=== PATIENT | female | born 1950 | race Caucasian/White ===

== ENCOUNTER 2019-04-29 18:56 | Inpatient (IN) | payer MEDICARE ==
[2019-04-29 20:24] LABS: Hematocrit 18 % (35-47); Hemoglobin 4.9 g/dL (12.0-16.0); Mean Corpuscular HGB Conc 28 g/dL (31-36); Mean Corpuscular Hemoglobin 17 pg (27-31); Mean Corpuscular Volume 59 fL (80-97); Mean Platelet Volume 7.3 fL (7.4-10.4); Platelet Count 343 10^3/uL (150-450); Red Blood Count 2.96 10^6 /uL (3.70-4.87); Red Cell Distribution Width 21 % (10-15); White Blood Count 5.7 10^3/uL (3.5-10.8)
[2019-04-29 20:25] LABS: Activated Partial Thrombo Time 32.8 seconds (26.0-38.0); INR 1.03 (0.82-1.09)
[2019-04-29 20:30] LABS: ALT 7 U/L (7-52); AST 10 U/L (13-39); Albumin 3.9 g/dL (3.2-5.2); Albumin/Globulin Ratio 1.2 (1-3); Alkaline Phosphatase 71 U/L (34-104); Anion Gap 7 mmol/L (2-11); Blood Urea Nitrogen 12 mg/dL (6-24); C Reactive Protein 1.13 mg/L (<8.01); CO2 Carbon Dioxide 25 mmol/L (22-32); Chloride 103 mmol/L (101-111); EGFR African American 120.3 (>60); EGFR Non-African American 99.4 (>60); Globulin 3.2 g/dL (2-4); Glucose 116 mg/dL (70-100); Potassium 4.2 mmol/L (3.5-5.0); Sodium 135 mmol/L (135-145); Total Protein 7.1 g/dL (6.4-8.9)
[2019-04-29 21:00] LABS: ABS Basophils 0.2 10^3/ul (0-0.2); ABS Eosinophils 0.1 10^3/ul (0-0.6); ABS Lymphocytes 1.9 10^3/ul (1.0-4.8); ABS Monocytes 0.5 10^3/ul (0-0.8); ABS Neutrophils 3.1 10^3/ul (1.5-7.7); Eosinophil % 2.3 %; Lymphocyte % 32.7 %; Nucleated Red Blood Cells % 0.2
[2019-04-29 21:17] LABS: Urine Appearance Clear; Urine Bilirubin Negative (Negative); Urine Blood Negative (Negative); Urine Color Yellow; Urine Glucose Negative (Negative); Urine Ketones Negative (Negative); Urine Nitrite Negative (Negative); Urine Protein Negative (Negative); Urine Specific Gravity 1.017 (1.010-1.030); Urine Urobilinogen Negative (Negative)
[2019-04-29] MEDS ORDERED: Acetaminophen TAB* 325 MG PO PRN (22:22)
[2019-04-29] MEDS ORDERED: Chlorpheniramine Maleate TAB* 4 MG PO PRN (22:23)
[2019-04-29] MEDS ORDERED: Ondansetron INJ* 2 MG/ML VIAL IV PRN (22:25)
[2019-04-29 23:09] LABS: LDH 152 U/L (140-271); Total Iron Binding Capacity 532 mcg/dL (250-450); Transferrin 380 mg/dL (203-362)
[2019-04-29 23:30] LABS: % Iron Saturation 3 % (15-55); Iron < 17 ug/dL (50-212)
[2019-04-29 23:31] LABS: Ferritin 2.1 ng/mL (11-307)
[2019-04-29 23:34] LABS: Folate > 20.00 ng/mL (>3.99)
--- NOTE | 2019-04-30 00:26 | HP ---
CC: Dr. Mancia.* HOSPITAL MEDICINE HISTORY AND PHYSICAL: DATE OF ADMISSION: 04/29/19 PRIMARY CARE PHYSICIAN: Dr. Mancia. ATTENDING PHYSICIAN: Dr. Kaur Rodriguez * (dictation provided by Mariah Pierce NP ) CHIEF COMPLAINT: Fatigue with finding of anemia by primary care. HISTORY OF PRESENT ILLNESS: Ms. Jimenez is a 68-year-old female who presents to the hospital today with concern for fatigue after finding of anemia from her primary care physician. Ms. Jimenez states that she has been feeling fatigued for quite sometime, however, it is difficult for her to pinpoint when this may have started. 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 She suspected that her tiredness was due to this. Her dover on mother's day. The patient noted that even though she was not required to be up in the middle of the night that she continued to feel quite fatigued. She called her primary care physician for an appointment and had blood work drawn prior to the appointment. The office called her today stating that she was very anemic and that she should come to the emergency room immediately. The patient's hemoglobin was found to be 5.1. Ms. Jimenez states that she had no blood in the stool, no black tarry stool, no change in the stool whatsoever. She has had no nausea, no vomiting, no diarrhea , no abdominal pain. She has not noticed her skin changing colors or becoming yellow or jaundiced and she states that she has felt in her normal state of health other than her fatigue. Ms. Jimenez states that she has had a colonoscopy with Dr. Deleon in 2004 that showed negative colonoscopy for polyps to the hepatic flexure. There is a report for an upper GI endoscopy performed for reflux symptoms in [address] Deleon. The patient had erosive esophagitis [place] grade B hiatal hernia. The patient states she denies taking ibuprofen or aspirin regularly. She states she generally takes the omeprazole twice daily as prescribed by Dr. Deleon though sometimes she misses this. In the emergency room, Ms. Jimenez' anemia was confirmed with a hemoglobin of 4.9 , her white blood cell count is normal, her platelet count is normal and note that she has an MCV of 59. Her INR was normal. Her electrolytes are normal, her creatinine is normal. Her EKG shows sinus tachycardia with a heart rate of about 110. PAST MEDICAL HISTORY: 1. Lymphedema. 2. Hypertension. MEDICATIONS: 1. Enalapril 20 mg p.o. b.i.d. 2. Omeprazole 20 mg p.o. b.i.d. 3. Atorvastatin, unknown dose. 4. The patient also takes Chlor-Trimeton for allergies. ALLERGIES: Are just seasonal. FAMILY HISTORY: Reviewed, noncontributory. SOCIAL HISTORY: No reported alcohol, tobacco or drug use. The patient lives alone. REVIEW OF SYSTEMS: A 14-point review of systems was completed with Ms. Jimenez and all those not mentioned above were negative. PHYSICAL EXAMINATION GENERAL: Ms. Jimenez is lying in the bed. She is in no acute distress. VITAL SIGNS: Temperature 98.9, pulse rate was 120, now down to about 90, O2 saturation 96% on room air, respiratory rate 28, blood pressure 168/88. HEENT: Extraocular movements are intact. LUNGS: Are clear to auscultation bilaterally. No accessory muscle use and good aeration. HEART: S1, S2. No murmur, rub, or gallop, and regular. ABDOMEN: Soft, nontender with bowel sounds positive x4. EXTREMITIES: There is no cyanosis, but positive for 3+ lymphedema. NEURO: She is alert, she is oriented x3. She moves all extremities equally. There is no facial asymmetry or focal weakness. SKIN: Intact. DIAGNOSTIC STUDIES/LAB DATA: WBC 5.7, hemoglobin 4.9, hematocrit 18, platelet count 343. INR 1.03. Sodium 135, potassium 4.2, chloride 103, serum bicarbonate 25, BUN 12, creatinine 0.6, glucose 116. CRP 1.13. Urine shows no evidence of infection. EKG shows sinus tachycardia. ASSESSMENT AND PLAN: Ms. Jimenez is a 68-year-old female with past medical history of hypertension, lymphedema, and presents to the hospital with concern for fatigue, found to have a new severe anemia. Our plans are for inpatient admission and I expect her stay will be greater than 2 days for the followin. Anemia: I suspect that Ms. Jimenez likely has an upper GI bleed, however, she does have a negative guaiac stool today. I plan to repeat the stool occult blood in the morning. Based on the fact that she has a profound iron deficiency and no other source of bleed, I still remain suspicious despite the negative guaiac that this is upper GI bleed. She has a history of some erosive esophagitis, has been on omeprazole. She denies ibuprofen or aspirin use. Other etiologies will be ruled out. Plan to check iron studies, vitamin B12, folate, LDH, and haptoglobin. I have not called GI this evening, but I am recommending that they be called in the a.m. to alert them to a need for likely upper endoscopy. Plan to check H and H in the a.m. Plan to switch to pantoprazole. The patient will be clear liquids tonight. I am making her n.p.o. after midnight, but this can be adjusted tomorrow based on the timing of any upper endoscopy plan. Two units of PRBCs have been ordered here in the ED, repeat H/H in AM. 2. Hypertension. Plan to continue enalapril. 3. Code status is full code. 4. Disposition: To medical floor. TIME SPENT: Approximately 60 minutes was spent on the admission of this patient , more than half time was spent with patient's bedside reviewing the events leading up to this hospitalization, performing the physical examination, and reviewing my plan of care. MARIAH PIERCE NP [id number]/[facility] #: [id number] MTDD
[2019-04-30 06:20] LABS: Hematocrit 19 % (35-47); Hemoglobin 5.9 g/dL (12.0-16.0)
--- NOTE | 2019-04-30 08:14 | PN ---
Subjective Date of Service: 04/30/19 Interval History: Feels well no CP, LH, abdominal pain, N/V. No Bm since yesterday Objective Active Medications: Acetaminophen (Tylenol Tab*) 650 mg PO Q6H PRN PRN Reason: PAIN Chlorpheniramine Maleate (Chlortrimeton Tab*) 4 mg PO Q4H PRN PRN Reason: allergies Enalapril Maleate (Vasotec Tab*) 20 mg PO BID JAY Ondansetron HCl (Zofran Inj*) 4 mg IV Q6H PRN PRN Reason: NAUSEA Pantoprazole Sodium (Protonix Tab*) 40 mg PO BID [facility] Vital Signs - 8 hr 04/30/19 04/30/19 01:12 05:15 Temperature 98.2 F Pulse Rate 66 Respiratory 18 18 Rate Blood Pressure 145/43 (mmHg) O2 Sat by Pulse 100 Oximetry Oxygen Devices in Use Now: None Appearance: NAD Eyes: No Scleral Icterus, PERRLA Ears/Nose/Mouth/Throat: NL Teeth, Lips, Gums, Clear Oropharnyx Neck: Trachea Midline Respiratory: Symmetrical Chest Expansion and Respiratory Effort, Clear to Auscultation Cardiovascular: NL Sounds; No Murmurs; No JVD, RRR Abdominal: NL Sounds; No Tenderness; No Distention, No Hepatosplenomegaly Lymphatic: No Cervical Adenopathy Extremities: - - b/l LE lymphedema Skin: No Rash or Ulcers Neurological: Alert and Oriented x 3 Result Diagrams: 04/30/19 05:16 04/29/19 19:55 Microbiology and Other Data: Microbiology 04/29/19 20:03 Stool Occult Blood (RAJNI) - Final Stool Assess/Plan/Problems-Billing Assessment: 68 yo F h/o lymphedema HTN, erosive esophagitis in 2006 on a PPI p/w fatigue found with anemia - Patient Problems (1) Iron deficiency anemia Comment: consult for GI placed, endo suit called No active bleed identified, protonix shortage and restrictions noted by pharmacy , maintain PO PPI and transition to IV if e/o bleed or change in clinical status Venofer while in hospital 1 additional unit of blood (3rd total) with recheck h/h after NPO (2) Lymphedema Comment: pt to have her own compression stocking brought in to use (3) Essential hypertension Comment: enalapril on hold while NPO (4) DVT prophylaxis Comment: SCDs
[2019-04-30] MEDS: Enalapril TAB* 20 MG PO SCH ×2 (09:07→21:29)
[2019-04-30] MEDS: Pantoprazole TAB * 40 MG TAB PO SCH ×2 (09:07→21:29)
[2019-04-30 12:55] LABS: Hematocrit 22 % (35-47)
--- NOTE | 2019-04-30 21:18 | CONS ---
GASTROENTEROLOGY CONSULT: DATE OF CONSULTATION: 04/30/19 CONSULTING PHYSICIAN: Rosa Elena Mancia MD, Molina Mata MD REASON FOR CONSULTATION: Microcytic anemia. 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 She was found to be anemic by her primary physician and sent to the emergency room. She has been transfused and now is feeling somewhat better with a hemoglobin of 7.0. The origin of this is somewhat mysterious to her as she has not been having any gastrointestinal upset. She was known to have a hiatal hernia and takes omeprazole 40 mg twice a day for probably 10 or 11 years. It completely controls her acid peptic symptoms. She does take ibuprofen 400 mg several times a month. She emphasizes how infrequently she takes it and notes she does have a fair amount of musculoskeletal distress. Her last upper endoscopy in 2006 showed a large hiatal hernia. She had a colonoscopy in 1999 that was negative and then a second colonoscopy attempt in July 2015 that reached the hepatic flexure. There were no polyps to that level. It is notable that her hemoglobin, which had been in the 13s in 2010, 2011, and 2012 had dipped to 11.5 by May 2015 and the next value was the one from yesterday with a hemoglobin of 5.1. PAST MEDICAL HISTORY: 1. Morbid obesity. 2. Lymphedema. 3. Status post two C-sections. 4. Appendectomy - 1973 at this hospital. SOCIAL HISTORY: She has 3 children, 5 grandsons and a granddaughter and she is the only medical person in the extended [place]. 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 REVIEW OF SYSTEMS: No history of seizures, syncope, TIA, CVA, arrhythmias, TB, hemoptysis, hepatitis, renal stones, gross hematuria. PHYSICAL EXAMINATION: She is an older woman appearing little bit chronically ill, sallow complected, and morbidly obese. She has quite significant pedal edema and lymphedema. HEENT: Exam is unremarkable. She has no adenopathy. Her lungs are clear. Heart sounds are regular. Breast and pelvic exam is deferred. The abdomen is obese with a midline infraumbilical scar. Rectal deferred. Hemoccult from yesterday was negative. IMPRESSION: This 68-year-old woman known to have a large hiatal hernia and on double dose twice a day PPI therapy for over 10 years, most likely has an iron deficiency anemia on the basis of increased losses from the hiatal hernia and malabsorption of iron from the PPI. Her right colon has not been viewed in some time, but the priority of doing that now appears somewhat low. Her body habitus makes that a more burdensome procedure and slightly more risky and should there be any post bleeding, a hemoglobin of 7 is not positioning her well to withstand that. Upper endoscopy, cautious introduction of an oral iron supplement low-dose for an extended period and replenishing her iron with some intravenous doses would be my recommendation. [id number]/[facility] #: [id number] MTDD
[2019-04-30 22:15] LABS: Hematocrit 23 % (35-47); Hemoglobin 7.3 g/dL (12.0-16.0)
[2019-05-01 07:08] LABS: Hematocrit 22 % (35-47); Mean Corpuscular HGB Conc 32 g/dL (31-36); Mean Corpuscular Hemoglobin 21 pg (27-31); Mean Corpuscular Volume 65 fL (80-97); Mean Platelet Volume 8.7 fL (7.4-10.4); Platelet Count 284 10^3/uL (150-450); Red Blood Count 3.34 10^6 /uL (3.70-4.87); Red Cell Distribution Width 28 % (10-15); White Blood Count 4.8 10^3/uL (3.5-10.8)
[2019-05-01 07:56] LABS: ABS Basophils 0.1 10^3/ul (0-0.2); ABS Eosinophils 0.2 10^3/ul (0-0.6); ABS Lymphocytes 1.4 10^3/ul (1.0-4.8); ABS Monocytes 0.6 10^3/ul (0-0.8); ABS Neutrophils 2.5 10^3/ul (1.5-7.7); Eosinophil % 3.7 %; Lymphocyte % 29.4 %; Microcytosis 2+; Nucleated Red Blood Cells % 0.1
[2019-05-01] MEDS ORDERED: Iron Sucrose* 200 MG in NS 0.9% 100 ML* 100 ML IVPB ONE (08:00)
[2019-05-01] MEDS: Enalapril TAB* 20 MG PO SCH ×2 (08:33→19:51)
[2019-05-01] MEDS: Pantoprazole TAB * 40 MG TAB PO SCH ×2 (08:33→19:51)
--- NOTE | 2019-05-01 15:03 | PN ---
Subjective Date of Service: 05/01/19 Interval History: no BMs o/n Feels less fatigued since receipt of blood no other complaints Objective Active Medications: Acetaminophen (Tylenol Tab*) 650 mg PO Q6H PRN PRN Reason: PAIN Chlorpheniramine Maleate (Chlortrimeton Tab*) 4 mg PO Q4H PRN PRN Reason: allergies Enalapril Maleate (Vasotec Tab*) 20 mg PO BID [facility] Last Admin: 05/01/19 08:33 Dose: 20 mg Iron Sucrose 200 mg/ Sodium (Chloride) 110 mls @ 110 mls/hr IVPB ONCE ONE Stop: 05/02/19 09:59 Ondansetron HCl (Zofran Inj*) 4 mg IV Q6H PRN PRN Reason: NAUSEA Pantoprazole Sodium (Protonix Tab*) 40 mg PO BID [facility] Last Admin: 05/01/19 08:33 Dose: 40 mg Vital Signs - 8 hr 05/01/19 05/01/19 05/01/19 07:45 08:00 11:35 Temperature 98.5 F 98.1 F Pulse Rate 60 68 Respiratory 20 17 20 Rate Blood Pressure 121/53 141/61 (mmHg) O2 Sat by Pulse 98 99 Oximetry Oxygen Devices in Use Now: None Appearance: NAD Eyes: No Scleral Icterus, PERRLA Ears/Nose/Mouth/Throat: NL Teeth, Lips, Gums, Clear Oropharnyx Neck: NL Appearance and Movements; NL JVP, Trachea Midline Respiratory: Symmetrical Chest Expansion and Respiratory Effort, Clear to Auscultation Cardiovascular: RRR, - - 2/6 KATI Abdominal: NL Sounds; No Tenderness; No Distention, No Hepatosplenomegaly Lymphatic: No Cervical Adenopathy Extremities: No Edema Skin: No Rash or Ulcers Neurological: Alert and Oriented x 3 Result Diagrams: 05/01/19 05:19 04/29/19 19:55 Microbiology and Other Data: Microbiology 04/29/19 20:03 Stool Occult Blood (RAJNI) - Final Stool Assess/Plan/Problems-Billing Assessment: 68 yo F h/o lymphedema, HTN, erosive esophagitis, in 2006 on a PPI large hiatial hernia p/w fatigue found with microcytic anemia - Patient Problems (1) Iron deficiency anemia Comment: appreciate GI c/s EGD today PPI PO Venofer while in hospital (IV iron) 1 additional unit of blood (3rd total)04/30 with recheck h/h after has remained stable NPO (2) Lymphedema Comment: pt to have her own compression stocking brought in to use (3) Essential hypertension Comment: enalapril on hold while NPO (4) DVT prophylaxis Comment: SCDs
[2019-05-01] MEDS ORDERED: fentaNYL* 50 MCG/ML 2 ML VIAL (100 MCG VIAL) ONE (15:09)
[2019-05-01] MEDS ORDERED: Midazolam* 1 MG/ML 10 ML VIAL (10 MG) ONE (15:10)
[2019-05-01] MEDS ORDERED: PEG 3000 GI LAVAGE* 1 GALLON PO ONE (16:50)
--- NOTE | 2019-05-01 19:32 | PRO ---
CC: Rosa Elena Mancia MD; Molina Mata MD * DATE OF PROCEDURE: 05/01/19 - ROOM #402 PROCEDURE: EGD with biopsy. PRIMARY CARE PROVIDER: Rosa Elena Mancia MD. INPATIENT ATTENDING: Molina Mata MD INDICATION: The patient was admitted for severe anemia noticed in the setting of weakness and fatigue. Lab on admission demonstrated a hemoglobin of 4.9. The patient has received blood transfusions. Hemoglobin over the last day has remained stable in the 7 to 7.3 range. The patient denies any overt GI bleeding or GI symptoms. Reports being told that she had a hiatal hernia a long time ago. Denies any significant NSAID use. The patient last had a colonoscopy attempted in 2014. The scope was only able to advance to the hepatic flexure due to the challenging anatomy. There were no polyps on that exam. MEDICATIONS GIVEN: Midazolam 10 mg IV, Fentanyl 100 mcg IV. DESCRIPTION OF PROCEDURE: Full disclosure of risks was reviewed with the patient as detailed on the consent form. The patient was placed in the left lateral decubitus position and monitored with continuous pulse oximetry, capnography, interval blood pressure monitoring and direct observation. A bite- block was placed between the patient's teeth. An adult gastroscope was then inserted into the patient's mouth and advanced down the esophagus, into the stomach, and into the distal duodenum. Findings and interventions are described below. FINDINGS: Esophagus was a tubular structure without rings or strictures. There was an irregular Z-line with the most proximal portion being measured at 32 cm. GE junction occurred at 34 cm. Scope was advanced into a large hiatal hernia (top of the gastric fold measuring at 42 cm). Hiatal hernia was closely inspected. There was no fresh or old blood. There were no erosions or bleeding sites seen within the hernia sac. The scope was then advanced into the stomach. Stomach was examined in the forward and retroflexed views. There was a small amount of yellowish liquid suctioned from the stomach on initial evaluation. No fresh or old blood. There was a finely nodular appearance to the gastric body mucosa. Biopsies obtained. In the antrum, there was thickened pre -pyloric mucosa. No ulcer or erosion seen on close inspection. Biopsy obtained. No AVMs. Scope was then advanced into the duodenum to at least the third portion. Careful inspection was made of the duodenal mucosa. There was ohara bilious fluid seen. No fresh or old blood. No erosions or ulcers. No AVMs. Biopsies obtained to rule out celiac disease. The scope was then withdrawn back into the esophagus where biopsies were obtained from the irregular Z-line. Scope was then withdrawn from the patient. The patient tolerated the procedure well and was recovered in the GI recovery area. IMPRESSION: 1. Complete upper endoscopy to the distal duodenum. 2. No fresh or old blood seen. No source of bleeding identified. 3. Large hiatal hernia. 4. Irregular Z-line. 5. Fine nodularity of the gastric body mucosa and pre-pyloric antral thickening. FOLLOWUP: 1. Await pathology. 2. Continue to monitor CBC every 12 hours. 3. Recommend a colonoscopy as the patient has profound iron deficiency anemia with unclear source. Clear diet today. Give GOLYTELY (4L) this evening with anticipation of a colonoscopy tomorrow. 4. Continue PPI b.i.d. (po). Consider decreasing to once daily PPI as there is possible decreased iron absorption in the setting of high dose PPI use. [id number]/[facility] #: [id number] [facility]
[2019-05-02 06:17] LABS: Hematocrit 22 % (35-47); Hemoglobin 6.9 g/dL (12.0-16.0); Mean Corpuscular HGB Conc 31 g/dL (31-36); Mean Corpuscular Hemoglobin 20 pg (27-31); Mean Corpuscular Volume 65 fL (80-97); Mean Platelet Volume 8.3 fL (7.4-10.4); Platelet Count 282 10^3/uL (150-450); Red Blood Count 3.41 10^6 /uL (3.70-4.87); Red Cell Distribution Width 29 % (10-15); White Blood Count 4.6 10^3/uL (3.5-10.8)
[2019-05-02 08:14] LABS: ABS Basophils 0.1 10^3/ul (0-0.2); ABS Eosinophils 0.2 10^3/ul (0-0.6); ABS Lymphocytes 1.2 10^3/ul (1.0-4.8); ABS Monocytes 0.5 10^3/ul (0-0.8); ABS Neutrophils 2.6 10^3/ul (1.5-7.7); Eosinophil % 3.5 %; Lymphocyte % 26.2 %; Microcytosis 2+; Nucleated Red Blood Cells % 0.2; Polychromasia 1+
[2019-05-02] MEDS: Enalapril TAB* 20 MG PO SCH (08:59)
[2019-05-02] MEDS: Pantoprazole TAB * 40 MG TAB PO SCH (08:59)
[2019-05-02] MEDS ORDERED: Iron Sucrose* 200 MG in NS 0.9% 100 ML* 100 ML IVPB ONE (09:00)
[2019-05-02] MEDS ORDERED: Midazolam* 1 MG/ML 10 ML VIAL (10 MG) ONE (15:24)
[2019-05-02] MEDS ORDERED: fentaNYL* 50 MCG/ML 2 ML VIAL (100 MCG VIAL) ONE (15:24)
[2019-05-02 19:03] VITALS: BP 125/76
--- NOTE | 2019-05-02 21:41 | DS ---
CC: Dr. Mancia * DISCHARGE SUMMARY: DATE OF ADMISSION: 04/29/19 DATE OF DISCHARGE: 05/02/19 PRIMARY CARE PROVIDER: Dr. Mancia. DISPOSITION ON DISCHARGE: Home. CONDITION ON DISCHARGE: Good. PRIMARY DIAGNOSIS: Iron deficiency anemia. SECONDARY DIAGNOSES: Include: 1. Lymphedema. 2. Essential hypertension. MEDICATIONS AT DISCHARGE: Include: 1. Chlorpheniramine 8 mg in the morning as needed. 2. Enalapril 20 mg twice daily. 3. Atorvastatin 10 mg in the morning. 4. Omeprazole 20 mg daily. Please note the decreased dose to once daily. 5. Ferrous sulfate 325 mg twice daily. 6. Docusate 200 mg daily as needed for constipation. PERTINENT LABORATORY DATA: Hemoglobin on presentation 4.9, hemoglobin on the day of discharge was 6.9. The patient received additional unit of blood prior to her discharge after this value. 6.9 does not represent ultimate discharge hemoglobin. Iron is less than 17, TIBC 532, percent saturation 3, transferrin 380, ferritin 2.1, folate was greater than 20, and vitamin B12 was 219, borderline low. HISTORY OF PRESENT ILLNESS AND HOSPITAL COURSE: This is a 68-year-old female with past medical history as outlined in the history of present illness, who on the day of admission presented to the hospital with increasing fatigue after she saw her doctor, had a hemoglobin checked, came back as critical low, presented to the emergency room for further evaluation, found with a hemoglobin of 4.9 as indicated above. She received a total of 3 units of packed red blood cells during the course of the hospital stay. She did not have any evidence of blood loss including a negative stool occult. She underwent an upper endoscopy with Dr. Branham on 05/01/19 without any notable evidence of bleeding. The patient does have a known hiatal hernia. No Garfield lesions identified at that time, although fine nodularity of the gastric body mucosa and prepyloric antral thickening was noted. A complete colonoscopy was performed by Dr. Brooks on the day of discharge, again without notable source of bleeding, only 1 polyp per verbal report. Dictated report is still pending at the time of this discharge. There is concern for decreased iron absorption in the setting of twice daily proton pump inhibitor. However, significant severity of iron deficiency anemia does warrant a capsule endoscopy. The patient will be discharged with a lower dose proton pump inhibitor as well as iron supplementation and docusate for constipation. She is advised to follow up with a burring machine operator for capsule endoscopy as well as a electrical technician for further evaluation of her iron deficiency anemia. She does not want to follow up at [place] and would rather follow up at [place] where she is currently working. Appointments were not made for the patient at this point. The patient did receive 2 doses of Venofer during the course of the hospital stay to supplement her iron. At followup please; 1. CBC as necessary to trend hemoglobin and hematocrit stability. 2. Ensure continued iron supplementation and repletion. 3. Follow up biopsies from endoscopy. 4. Ensure the patient follows up with Gastroenterology for capsule endoscopy. The patient signed a medical record release while hospitalized so that she may obtain her records more easily when she follows up outside of our service area. 5. Ensure the patient follows up with Hematology. Reasons to return to the hospital including, but not limited to, recurrent or worsening symptoms including worsening fatigue, shortness of breath, or chest pain, dark black stools or blood, lightheadedness, loss of consciousness, near loss of consciousness, inability to obtain or tolerate medications discussed with the patient. She acknowledge understanding. TIME SPENT: Greater than 60 minutes was spent in the discharge of the patient, greater than half was spent [id number] with the patient. [id number]/[facility] #: [id number] WA[facility]AS
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
== END 2019-05-02 20:15 | disposition home or self-care (01) | DRG 812 ==
LOC: ED 18:56 → MED 22:18
PROVIDERS: ADMIT Internal Medicine; ATTEND Internal Medicine
PROC: 30233N1 Transfusion of Nonautologous Red Blood Cells into Peripheral Vein, Percutaneous Approach (ICD-10-PCS; principal; 2019-04-29)
PROC: 0DD98ZX Extraction of Duodenum, Via Natural or Artificial Opening Endoscopic, Diagnostic (ICD-10-PCS; 2019-05-01)
PROC: 0DD78ZX Extraction of Stomach, Pylorus, Via Natural or Artificial Opening Endoscopic, Diagnostic (ICD-10-PCS; 2019-05-01)
PROC: 0DD68ZX Extraction of Stomach, Via Natural or Artificial Opening Endoscopic, Diagnostic (ICD-10-PCS; 2019-05-01)
PROC: 0DD18ZX Extraction of Upper Esophagus, Via Natural or Artificial Opening Endoscopic, Diagnostic (ICD-10-PCS; 2019-05-01)
DX: D50.9 Iron deficiency anemia, unspecified (principal); Z68.41 Body mass index [BMI] 40.0-44.9, adult; E66.01 Morbid (severe) obesity due to excess calories; I89.0 Lymphedema, not elsewhere classified; I10 Essential (primary) hypertension; K44.9 Diaphragmatic hernia without obstruction or gangrene; J30.2 Other seasonal allergic rhinitis; Z79.899 Other long term (current) drug therapy
CPT/HCPCS: 36415; 80053; 81003; 82270; 82272; 82607; 82728; 82746; 83010; 83540; 83550; 83615; 85014; 85018; 85025; 85610; 85730; 86140; 86850; 86900; 86901; 86922; 88305; 88342; 93005; 99156; 99157; 99284; A9270-GY; J1756; J2250; J3010; P9040